=== PATIENT | female | born 1995 | race Hispanic/Latino ===

== ENCOUNTER 2022-02-18 21:09 | Emergency (ER) | payer OTHER | END 2022-02-18 21:45 | disposition home or self-care (01) | LOC: BURERS 21:09 | DX: N93.9 Abnormal uterine and vaginal bleeding, unspecified (principal) | CPT/HCPCS: 99281 ==

== ENCOUNTER 2022-03-10 20:54 | Emergency (ER) | payer OTHER ==
[2022-03-10] MEDS ORDERED: Ibuprofen 800 MG TAB ONE (21:16)
[2022-03-10] MEDS ORDERED: Dicyclomine 20 MG TAB ONE (21:16)
[2022-03-10 21:26] LABS: Pregnancy Test - Urine (BHCG) Negative (Negative); Pregu Control Background? CLEAR/WHITE (CLR/WHITE); Pregu Control Bar Appear? YES (CONTROL BAR); Specific Gravity 1.016 (1.002-1.036)
[2022-03-10 21:31] LABS: Bilirubin Negative (Negative); Blood, Urine Negative (Negative); Clarity Clear (Clear); Glucose, Urine (Dipstick) Negative (Negative); Ketone, Urine Negative (Negative); Leukocyte Small (Negative); Nitrite Negative (Negative); Protein, Urine (Dipstick) Negative (Neg-Trace); Specific Gravity, Urine 1.015 (1.005-1.030); Urobilinogen 0.2 mg/dL (Less than 2)
[2022-03-10 21:38] LABS: RBC/HPF 0-3 HPF (0-3); WBC/HPF 0-3 HPF (0-3)
[2022-03-10 21:39] LABS: Bacteria/HPF Rare-Few HPF (None Seen)
== END 2022-03-10 21:59 | disposition home or self-care (01) ==
LOC: BURERS 20:54
DX: K59.00 Constipation, unspecified (principal); F17.200 Nicotine dependence, unspecified, uncomplicated
CPT/HCPCS: 74022; 81003; 81015; 81025; 87086

== ENCOUNTER 2022-05-26 01:05 | Emergency (ER) | payer OTHER | END 2022-05-26 01:34 | disposition home or self-care (01) | LOC: BURERS 01:05 | DX: S61.302A Unspecified open wound of right middle finger with damage to nail, initial encounter (principal); F17.290 Nicotine dependence, other tobacco product, uncomplicated; W23.1XXA Caught, crushed, jammed, or pinched between stationary objects, initial encounter | CPT/HCPCS: 99283 ==